=== PATIENT | male | born 1945 | race African-American/Black ===

== ENCOUNTER 2022-01-25 06:33 | Emergency (ER) | payer OTHER ==
[2022-01-25 06:51] VITALS: BMI 29.0
[2022-01-25] MEDS ORDERED: ACETAMINOPHEN 1000 MG/100 ML BAG IVPB ONE (07:28)
[2022-01-25] MEDS ORDERED: ACETAMINOPHEN INJECTION 100 ML IVPB ONE (07:38)
[2022-01-25 08:47] LABS: CALCIUM 9.1 mg/dL (8.5-10.1)
[2022-01-25 08:48] LABS: ALBUMIN 3.4 g/dl (3.4-5.0); BLOOD UREA NITROGEN 14.2 mg/dL (7-18); MAGNESIUM 1.9 mg/dL (1.8-2.4)
[2022-01-25 08:50] LABS: BASO % 0.7 % (0-2.0); LYMPH % 17.3 % (8-40); MCH 30.9 pg (25.7-33.7); MCHC 33.3 g/dl (32.0-35.9); MEAN CELL VOLUME 92.7 fl (80-96); MEAN PLT VOLUME 9.1 fl (7.5-11.1); MONO % 12.6 % (3.8-10.2); NEUT % 63.4 % (42.8-82.8); PLATELET COUNT 149 10^3/uL (134-434); RBC 4.21 M/mm3 (4.00-5.60); RDW 14.3 % (11.9-15.9); WHITE BLOOD COUNT 6.6 K/mm3 (4.0-10.0)
[2022-01-25 08:51] LABS: CREATININE 1.2 mg/dL (0.55-1.3); PHOSPHOROUS 3.1 mg/dL (2.5-4.9)
[2022-01-25 08:52] LABS: BILIRUBIN,TOTAL 0.8 mg/dL (0.2-1); TOT PROT 6.6 g/dl (6.4-8.2)
[2022-01-25] MEDS ORDERED: LIDOCAINE 5% TOPICAL PATCH TP ONE (09:50)
[2022-01-25] MEDS ORDERED: LIDOCAINE 5% TOPICAL PATCH ONE (09:55)
[2022-01-25 11:43] VITALS: BP 141/103; PULSE 76; RESP 18
[2022-01-25] MEDS ORDERED: LIDOCAINE PATCH REMOVAL MC SCH (22:00)
== END 2022-01-25 11:43 | disposition home or self-care (01) ==
LOC: JER 06:33
PROC: 3E033NZ Introduction of Analgesics, Hypnotics, Sedatives into Peripheral Vein, Percutaneous Approach (ICD-10-PCS; principal; 2022-01-25)
DX: R07.9 Chest pain, unspecified (principal); M54.6 Pain in thoracic spine
CPT/HCPCS: 0241U-QW; 36415; 71046-TC-FY; 71250-TC; 80053; 83735; 84100; 84443; 84484; 85025; 93005; 93010; 99285-25

== ENCOUNTER 2024-02-05 07:43 | Emergency (ER) | payer OTHER, BC ==
[2024-02-05 07:54] VITALS: BP 141/97; PULSE 64; RESP 18; TEMP 98.2; BMI 29.2
[2024-02-05 08:56] LABS: EOS % 5.3 % (0-4.5); HEMATOCRIT 37.6 % (35.4-49); HEMOGLOBIN 12.6 GM/dL (11.7-16.9); LYMPH % 16.4 % (8-40); MCH 31.5 pg (25.7-33.7); MCHC 33.5 g/dl (32.0-35.9); MEAN CELL VOLUME 93.9 fl (80-96); NEUT % 66.3 % (42.8-82.8); PLATELET COUNT 132 10^3/uL (134-434); RBC 4.01 M/mm3 (4.00-5.60); RDW 15.1 % (11.9-15.9); WHITE BLOOD COUNT 5.3 K/mm3 (4.0-10.0)
[2024-02-05 09:01] LABS: EPI CELLS 2 /uL (0-25.1); HYALINE CASTS 0 /uL (0-3.1); PH,URINE 6.5 (5.0-8.0); URINE APPEARANCE CLEAR; URINE BACTERIA 4 /uL (0-1359); URINE BILIRUBIN NEGATIVE (NEGATIVE); URINE COLOR YELLOW; URINE GLUCOSE (UA) NEGATIVE (NEGATIVE); URINE KETONE NEGATIVE (NEGATIVE); URINE LEUK ESTERASE NEGATIVE (NEGATIVE); URINE NITRITE NEGATIVE (NEGATIVE); URINE PROTEIN 1+ (NEGATIVE); URINE RBC 9 /uL (0-23.9); URINE UROBILINOGEN 0.2 mg/dL (0.2-1.0); URINE WBC 1 /uL (0-25.8)
[2024-02-05 09:02] LABS: INR 1.28 (0.83-1.09); PROTHROMBIN TIME (PATIENT) 14.4 SEC (9.7-13.0)
[2024-02-05 09:04] LABS: ACTIVATED PTT 38.3 SECONDS (25.2-36.5)
[2024-02-05 09:09] LABS: CALCIUM 8.9 mg/dL (8.5-10.1)
[2024-02-05 09:10] LABS: ALBUMIN 3.5 g/dl (3.4-5.0); MAGNESIUM 1.8 mg/dL (1.8-2.4)
[2024-02-05 09:12] LABS: PHOSPHOROUS 2.5 mg/dL (2.5-4.9)
[2024-02-05 09:13] LABS: CREATININE 1.4 mg/dL (0.55-1.3)
[2024-02-05 09:14] LABS: BILIRUBIN,TOTAL 0.6 mg/dL (0.2-1); TOT PROT 6.7 g/dl (6.4-8.2)
[2024-02-05] MEDS: SODIUM CHLORIDE 0.9% 500 ML INFUS.BAG IV ONE (09:49)
== END 2024-02-05 11:58 | disposition home or self-care (01) ==
LOC: JER 07:43 → JERFT 07:43
DX: M79.661 Pain in right lower leg (principal)
CPT/HCPCS: 36415; 80053; 81003; 82550; 82553; 83605; 83735; 84100; 85025; 85610; 85730; 93970-TC; 99284-25